=== PATIENT | female | born 1985 | race Caucasian/White ===

== ENCOUNTER 2016-09-12 12:26 | Emergency (ER) | payer MEDICAID ==
[~2016-09-12] VITALS: Ht 152.4 cm; Wt 59.0 kg
[~2016-09-12 12:26] MED LIST: CEPH500T PO; LISI10TA7 PO; METF500T4 PO; SULF-168 PO
[2016-09-12 13:05] LABS: BASOPHILS % (AUTO) 0.3 % (0.0-2.0); EOSINOPHILS % (AUTO) 0.8 % (1.0-6.0); HEMATOCRIT 41.9 % (36-46); HEMOGLOBIN 13.5 g/dL (12.0-16.0); LYMPHOCYTES # (AUTO) 1.9 K/uL (1.0-4.8); LYMPHOCYTES % (AUTO) 21.7 % (22.0-44.0); MEAN CORPUSCULAR HEMOGLOBIN 26.4 pg (26.0-34.0); MEAN CORPUSCULAR HGB CONC 32.3 G/dL (31.0-37.0); MEAN CORPUSCULAR VOLUME 82 fL (80-100); MONOCYTES # (AUTO) 0.6 K/uL (0.1-1.0); MONOCYTES % (AUTO) 6.7 % (2.0-9.0); NEUTROPHILS # (AUTO) 6.2 K/uL (1.8-7.7); NEUTROPHILS % (AUTO) 70.5 % (40.0-70.0); PLATELET COUNT (AUTO) 303 K/uL (150-450); RED BLOOD CELL COUNT(AUTO) 5.12 MIL/uL (4.00-5.20); RED CELL DISTRIBUTION WIDTH 13.8 % (11.5-14.5); WHITE BLOOD COUNT (AUTO) 8.8 K/uL (4.5-11.0)
[2016-09-12 13:17] LABS: ANION GAP 7 mmol/L (8-16); CALCIUM, TOTAL 8.3 mg/dL (8.8-10.5); CARBON DIOXIDE 26 mmol/L (22-29); CHLORIDE 100 mmol/L (98-107); CREATININE 0.84 mg/dL (0.60-1.30); GLOMERULAR FILTR. RATE CALC > 60 mL/min (>60); POTASSIUM 4.4 mmol/L (3.5-5.1); SODIUM SERUM 133 mmol/L (136-145); UREA NITROGEN, BLOOD 13 mg/dL (7-18)
[2016-09-12] MEDS ORDERED: INSULIN REGULAR, HUMAN 100 UNITS/ML IVP ONE ×2 (13:30→16:15)
[2016-09-12] MEDS ORDERED: SODIUM CHLORIDE 0.9% 2,000 ML IV ONE (13:30)
[2016-09-12 14:56] LABS: GLUCOSE,POINT OF CARE 238 MG/DL (70-110)
[2016-09-12 16:11] LABS: GLUCOSE,POINT OF CARE 213 MG/DL (70-110)
[2016-09-12] MEDS ORDERED: SODIUM CHLORIDE 0.9% 1,000 ML IV ONE (16:15)
[2016-09-12 16:30] LABS: APPEARANCE,URINE CLEAR (CLEAR); GLUCOSE, URINE (UA) >=1000 mg/dL (NEGATIVE); KETONES,URINE NEGATIVE (NEGATIVE); LEUKOCYTE ESTERASE ,URINE SMALL (NEGATIVE); OCCULT BLOOD,URINE SMALL (NEGATIVE); PROTEIN,URINE NEGATIVE (NEGATIVE)
[2016-09-12 16:38] LABS: ADD UA MICROSCOPIC YES
[2016-09-12 16:55] LABS: SQUAMOUS EPITHELIAL CELL,UR Moderate /LPF (None Seen)
[2016-09-12] MEDS ORDERED: DEXTROSE IV ONE (17:00)
[2016-09-12] MEDS ORDERED: PENICILLIN POTASSIUM IV ONE (17:00)
[2016-09-12] MEDS ORDERED: KETOROLAC TROMETHAMINE 30 MG/ML VIAL IVP ONE (17:00)
[2016-09-12] MEDS ORDERED: ACETAMINOPHEN 650 MG/20.3 ML SOLUTION UDCUP PO ONE (17:00)
[2016-09-12] MEDS ORDERED: WATER IV ONE (17:00)
[2016-09-12 17:46] LABS: GLUCOSE,POINT OF CARE 202 MG/DL (70-110)
[2016-09-12 18:41] VITALS: BP 129/79
== END 2016-09-12 19:03 | disposition home or self-care (01) ==
LOC: EMS 12:27
DX: E11.65 Type 2 diabetes mellitus with hyperglycemia (principal); J03.90 Acute tonsillitis, unspecified; N39.0 Urinary tract infection, site not specified; Z91.14 Patient's other noncompliance with medication regimen
CPT/HCPCS: 36415; 80048; 81001; 82009; 82962; 85025; 87077; 87086; 87186; 96361; 96365; 96375; 96376; 99285; J1815; J1885; J2540; J7030; J7060

== ENCOUNTER 2025-03-28 09:47 | Emergency (ER) | payer MEDICAID ==
[~2025-03-28] VITALS: Ht 152.4 cm; Wt 60.6 kg
[2025-03-28 09:58] VITALS: BP 128/62; PULSE 99; RESP 18; TEMP 98.1; O2SAT 99
[2025-03-28 10:15] LABS: GLUCOMETER DEV NAME(LOC) ER.7; GLUCOSE,POINT OF CARE 150 MG/DL (70-110)
[2025-03-28] MEDS ORDERED: PENI500T2 PO (13:44)
== END 2025-03-28 13:57 | disposition home or self-care (01) ==
LOC: EMS 09:49
DX: K13.79 Other lesions of oral mucosa (principal); E11.9 Type 2 diabetes mellitus without complications
CPT/HCPCS: 82962; 99283